=== PATIENT | female | born 1995 | race Caucasian/White ===

== ENCOUNTER 2025-07-08 19:32 | Emergency (ER) | payer OTHER ==
[~2025-07-08] VITALS: Ht 160 cm; Wt 90.7 kg
[2025-07-08 20:09] VITALS: BP 114/65; PULSE 82; RESP 16; TEMP 98.5; O2SAT 98
[2025-07-08 20:11] LABS: BASOPHIL # 0.1 10^3/uL (0.0-0.1); BASOPHIL % 0.4 % (0.1-1.2); EOSINOPHIL # 0.2 10^3/uL (0.0-0.2); EOSINOPHIL % 2.0 % (0.0-5.0); HEMATOCRIT(ML) 41.7 % (36.0-46.0); IG % 0.20 % (0.00-0.50); LYMPHOCYTES # 3.30 10^3/uL1 (1.0-4.8); LYMPHOCYTES % 28.0 % (24.0-44.0); MEAN CORP HGB 29.1 pg (26-34); MEAN CORP HGB CONCENTRATION 33.1 g/dL (33-36.5); MEAN CORP VOLUME 87.8 fL (78-100); MONOCYTES # 0.7 10^3/uL (0.3-0.8); MONOCYTES % 5.9 % (5.0-12.0); NEUTROPHIL # 7.5 10^3/uL (1.8-7.7); NEUTROPHILS % 63.5 % (41.0-85.0); RED BLOOD CELL 4.75 10^6/uL (4.00-5.20); RED CELL DISTRIBUTION WIDTH 13.0 % (11.5-14.5); WHITE BLOOD CELL 11.8 10^3/uL (4.5-11.0)
[2025-07-08] MEDS ORDERED: NS 1000ML 1,000 ML ONE (20:12)
[2025-07-08] MEDS: NS 1000ML 1,000 ML STA (20:22)
[2025-07-08 20:30] LABS: ALANINE AMINOTRANSFERASE(ML) 33 U/L (12-78); ALBUMIN(ML) 3.7 g/dL (3.4-5.0); CREATININE SERUM 0.59 mg/dL (0.59-1.40); EST GFR, NON-AA 121.4 (>/=60)
[2025-07-08 20:34] LABS: TROPONIN I HIGH SENSITIVITY < 4 ng/L (0-50)
[2025-07-08] MEDS ORDERED: TORADOL ONE (21:01)
[2025-07-08] MEDS: TORADOL IV STA (21:07)
== END 2025-07-08 21:09 | disposition home or self-care (01) ==
LOC: ER 19:32
DX: R51.9 Headache, unspecified (principal); Z90.49 Acquired absence of other specified parts of digestive tract; Z90.89 Acquired absence of other organs
CPT/HCPCS: 99285; 96374; 70450; 71045; 96361; 80053; 85025; 36415; 84484; 84703; 93005; J1885; J7030